=== PATIENT | male | born 1980 | race Caucasian/White ===

== ENCOUNTER 2020-01-16 15:28 | Emergency (ER) | payer OTHER ==
[~2020-01-16] VITALS: Ht 170.2 cm; Wt 99.3 kg
--- NOTE | 2020-01-16 15:53 | NUR ---
FIRST CONTACT WITH PT. PT WAS SEEN BY TELE DOC 2 DAYS AGO AND PLACED ON PENICILLIN, NOW WITH WORSENING SYMPTOMS. SPOKE WITH TELE DOC TODAY AND WAS INSTRUCTED TO COME IN TO R/O ABCESS. PT RPTS FEVERS BETWEEN 100.4 AND 104.0. TYLENOL AND MOTRIN AT 1400. PT'S AOX4. RESPS EVEN AND UNLABORED. BP/SPO2 MONITORS IN PLACE. CALL LIGHT WITHIN REACH. EDMD AT BEDSIDE TO EVALUATE AT THIS TIME.
[2020-01-16] MEDS ORDERED: SODIUM CHLORIDE FLUSH 10ML SYR IVF ONE (16:00)
[2020-01-16] MEDS ORDERED: SODIUM CHLORIDE 0.9% 1,000ML IVBOLUS ONE (16:00)
[2020-01-16] MEDS ORDERED: AMPICILLIN/SULBACTAM 3 GM in SODIUM CHLORIDE 0.9% 100 ML IV ONE (16:00)
[2020-01-16] MEDS ORDERED: DEXAMETHASONE 4 MG/ML, 1ML IVPush ONE (16:00)
[2020-01-16] MEDS ORDERED: DEXAMETHASONE 4 MG/ML, 5ML ONE (16:01)
--- NOTE | 2020-01-16 16:02 | NUR ---
THIS RN CALLED MAIN ED TO SEND UNASYN FOR PT.
--- NOTE | 2020-01-16 16:10 | NUR ---
PIV EST ON L AC WITH NO COMPLICATIONS. PT MEDICATED PER EMAR. PT TOLERATED WELL. NS INFUSING AT THIS TIME.
--- NOTE | 2020-01-16 16:25 | NUR ---
ABX INFUISNG WITH NS AT THIS TIME. PT TOLERATED WELL.
[2020-01-16 17:00] VITALS: BP 115/70
--- NOTE | 2020-01-16 17:00 | NUR ---
NS IS DONE. ABX INFUSING WTILL. PT TOLERATED WELL. PT'S AOX4. RESPS EVEN AND UNLABORED. VSS.
--- NOTE | 2020-01-16 17:31 | NUR ---
Patient given discharge instructions and they have confirmed that they understand the instructions.
== END 2020-01-16 17:31 | disposition home or self-care (01) ==
LOC: ED 16:30
DX: J02.0 Streptococcal pharyngitis (principal); R50.9 Fever, unspecified; F17.200 Nicotine dependence, unspecified, uncomplicated
CPT/HCPCS: 87880; 96365; 96375; 99284; J0295; J1100; J7030